=== PATIENT | female | born 1970 | race Caucasian/White ===

== ENCOUNTER 2016-12-15 15:11 | Emergency (ER) | payer OTHER ==
[2016-12-15] MEDS ORDERED: NAPROXEN 250 MG TABLET PO ONE (15:38)
--- NOTE | 2016-12-15 15:43 | Emergency Department Record ---
History of Present Illness - General Chief complaint: Lower Extremity Pain Stated complaint: LEFT LEG PAIN Time Seen by Provider: 12/15/16 15:13 Source: Patient Mode of Arrival: Ambulatory Limitations: No limitations - History of Present Illness Initial comments: 46 yo female presents to ED with a CC of lanterior-lateral left lower leg pain for the past 9 months. Patient reports that her symptoms are intermittent, underwent radiographs which were negative in March of this year. 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 Patient also reports that her symptoms improved when she was off work for 1 week. Patient reports that she fell today which caused her symptoms to worsen. Patient denies fevers, chills, or weakness to the lower extremity on examination. Patient does report that her symptoms are worst following the end of her work day and improved in the morning. MD Complaint: Extremity pain Onset/Timin -: Hour(s) Location: Left, Lower Leg History of Same: Yes Radiation: None Severity scale (1-10): 9 Quality: Burning Consistency: Constant Improves with: Nothing Worsens with: Walking, Weight bearing - Related Data Previous Rx's Medication Instructions Recorded Naproxen [Naprosyn] 500 mg PO Q12H #30 tab. 12/15/16 Allergies Allergy/AdvReac Type Severity Reaction Status Date / Time cefaclor [From Ceclor] Allergy Severe VOMITING Unverified 12/15/16 15:30 cephalexin monohydrate Allergy Severe HIVES Unverified 12/15/16 15:30 [From Keflex] erythromycin base Allergy Severe VOMITING Unverified 12/15/16 15:30 penicillin V Allergy Severe ANAPHYLAXIS Unverified 12/15/16 15:30 tetracycline Allergy Severe VOMITING Unverified 12/15/16 15:30 Travel Screening - Travel/Exposure Within Last 30 Days Have you traveled within the last 30 days?: No - Travel/Exposure Within Last Year Have you traveled outside the [place] in the last year?: No - Additonal Travel Details Have you been exposed to anyone with a communicable illness?: No - Travel Symptoms Symptom Screening: None Review of Systems Constitutional: Denies: Chills, Fever, Malaise, Night sweats Eyes: Denies: Eye discharge, Eye pain ENT: Denies: Congestion, Ear pain, Epistaxis Respiratory: Denies: Cough, Dyspnea Cardiovascular: Denies: Chest pain, Dyspnea on exertion Endocrine: Denies: Fatigue, Heat or cold intolerance Gastrointestinal: Denies: Abdominal pain, Nausea, Vomiting Genitourinary: Denies: Incontinence, Retention Musculoskeletal: Reports: Arthralgia, Myalgia. Denies: Back pain, Gout, Joint swelling Skin: Denies: Bruising, Change in color Neurological: Denies: Abnormal gait, Confusion, Headache, Seizure Psychiatric: Denies: Anxiety Hematological/Lymphatic: Denies: Anemia, Blood Clots Past Medical History - SOCIAL HISTORY Smoking Status: Current every day smoker Alcohol Use: Rare - RESPIRATORY Hx Respiratory Disorders: No - CARDIOVASCULAR Hx Cardio Disorders: Yes Comment:: Heart murmur - NEURO Hx Neuro Disorders: No - GI Hx GI Disorders: No - ENDOCRINE Hx Endocrine Disorders: No Hx Diabetes: No Hx Thyroid Disease: No - MUSCULOSKELETAL Hx Musculoskeletal Disorders: Yes Comment:: Left leg prob since Mar 2016 - PSYCH Hx Psych Problems: No - HEMATOLOGY/ONCOLOGY Hx Hematology/Oncology Disorders: No Family Medical History Any Significant Family History?: Yes Hx Diabetes: Grandparents Hx Heart Disease: Father Hx HTN: Father Physical Exam - General General Appearance: Alert, Oriented x3, Cooperative, No acute distress Limitations: No limitations - Head Head exam: Atraumatic, Normocephalic, Normal inspection Head exam detail: negative: Abrasion, Contusion, Kurtz's sign, General tenderness, Hematoma, Laceration - Eye Eye exam: Normal appearance. negative: Conjunctival injection, Periorbital swelling, Periorbital tenderness, Scleral icterus - ENT Ear exam: negative: Auricular hematoma, Auricular trauma Nasal Exam: negative: Active bleeding, Discharge, Dried blood, Foreign body Mouth exam: negative: Drooling, Laceration, Muffled voice, Tongue elevation - Neck Neck exam: Normal inspection. negative: Meningismus, Tenderness - Respiratory Respiratory exam: Normal lung sounds bilaterally. negative: Rales, Respiratory distress, Rhonchi, Stridor - Cardiovascular Cardiovascular Exam: Regular rate, Normal rhythm, Normal heart sounds - GI/Abdominal GI/Abdominal exam: Soft. negative: Rebound, Rigid, Tenderness - Rectal Rectal exam: Deferred - exam: Deferred - Extremities Extremities exam: Tenderness (TTP along the anterior-lateral aspect of the left lower extremity, no STS noted, strong DPP, and compartments are soft on examination. No edema present. No pain to the calf, posterior leg, or popliteal region. ). negative: Calf tenderness, Pedal edema - Back Back exam: Denies: CVA tenderness (R), CVA tenderness (L) - Neurological Neurological exam: Alert, Normal gait, Oriented X3 - Psychiatric Psychiatric exam: Normal affect, Normal mood - Skin Skin exam: Normal color. negative: Abrasion Type of lesion: negative: abrasion Course Vital Signs 12/15/16 15:15 Temperature 98.5 F Pulse Rate 78 Respiratory 20 Rate Blood Pressure 136/92 Pulse Ox 98 - Reevaluation(s) Reevaluation #1: 12/15/16 16:56 Left Lower Leg: No acute process Patient was updated on her radiology results, appears stable for discharge with continued symptomatic treatment at home for probable overuse injury related to her employment. Will treat with Naprosyn and instructions to reduce her overuse of the extremity. 12/15/16 16:58 Disposition Disposition: Discharge Clinical Impression: Lower extremity pain Qualifiers: Laterality: left Qualified Code(s): M79.605 - Pain in left leg Disposition: Home, Self-Care Condition: (2) Stable Instructions: Leg Pain (ED) Additional Instructions: Return to ED if your symptoms worsen or if you have any concerns. Naprosyn as directed. Follow-up with your family doctor in 3-5 days as directed. Prescriptions: Naproxen [Naprosyn] 500 mg PO Q12H #30 tab.dr Forms: Patient Portal Access Time of Disposition: 17:00 Quality - Quality Measures Quality Measures: N/A - Blood Pressure Screening Does Patient Have Any of the Following: No Blood Pressure Classification: Hypertensive Reading Systolic Measurement: 136 Diastolic Measurement: 92 Screening for High Blood Pressure: < Pre-Hypertensive BP, F/U Documented > [ G8950] Pre-Hypertensive Follow-up Interventions: Referral to alternative/primary care provider.
--- NOTE | 2016-12-17 04:00 | RADIOLOGY REPORT ---
DATE: 12/15/2016. EXAM: LEFT TIBIA/FIBULA, TWO VIEWS. HISTORY: Lateral burning and pain. TECHNIQUE: AP and lateral views of the tibia and fibula were obtained on four images. FINDINGS: The soft tissues are unremarkable. No fracture or malalignment. Tiny enthesophyte at the Achilles calcaneal attachment. Tiny plantar calcaneal enthesophyte also incidentally noted. IMPRESSION: NO ACUTE LEFT TIBIA/FIBULA ABNORMALITY. MILD POSTERIOR AND PLANTAR CALCANEAL ENTHESOPHYTES. JOB NUMBER: [id number] [facility]
== END 2016-12-15 17:09 | disposition home or self-care (01) ==
LOC: ER 15:11
DX: G89.29 Other chronic pain (principal); M79.662 Pain in left lower leg
CPT/HCPCS: 99283

== ENCOUNTER 2017-07-15 07:28 | Day surgery (SDC) | payer OTHER ==
[~2017-07-15 07:28] MED LIST: ACETAMINOPHEN 1,000 MG/100 ML BTL IV ONE; CLINDAMYCIN 600MG/50ML PREMIX 600 MG/50 ML BAG IVPB ONE
[2017-07-15] MEDS ORDERED: PROPOFOL 10 MG/ML VIAL IV ONE (07:29)
[2017-07-15] MEDS ORDERED: LIDOCAINE 2% MDV (20MG/ML) 20ML VIAL IV ONE (07:29)
[2017-07-15] MEDS ORDERED: MIDAZOLAM HCL 2MG/2ML VIAL IV ONE (07:29)
[2017-07-15] MEDS ORDERED: BUPIVACAINE 0.25% W/EPI MPF 30ML VIAL IVP ONE (07:29)
[2017-07-15] MEDS ORDERED: FENTANYL PF 100MCG/2ML VIAL IV ONE (07:29)
--- NOTE | 2017-07-16 13:30 | Operative Note ---
DATE OF SURGERY: 07/15/2017 Surgeon: Ankush Sanders DO PREOPERATIVE DIAGNOSIS: Left breast mass, fibroadenoma. POSTOPERATIVE DIAGNOSIS: Left breast mass, fibroadenoma. OPERATION: Excision of left breast mass. Indication: The patient is a 47-year-old female who had a mass noted which was palpable. This was also seen on imaging. She underwent a stereotactic core biopsy which did reveal findings consistent with fibroadenoma. We did discuss excision versus observation. She desired surgical excision. Risks include but are not limited to bleeding, infection, hematoma formation. She understood this fully. Thereafter, consent was signed and questions answered. PROCEDURE: The patient was taken to the operating room and placed in a supine position. Local and IV sedation was given per the department of anesthesia. The patient's left breast was prepped and draped in the usual fashion. The area around the mass was anesthetized with a total of 8 mL of 0.25% Sensorcaine with epinephrine. A 3 cm curvilinear incision was made along the nipple areolar line. This was carried down to the subcutaneous tissue. A mass was encountered. This was grasped with an Allis and dissected free from surrounding tissue with cautery. This was passed off the field. Hemostasis was noted. The wound was then irrigated, closed with 3-0 Vicryl and 5-0 Monocryl. Dermabond was placed. She was taken to the recovery room in satisfactory condition. Final pathology pending. CC: DEEP Bowman
== END 2017-07-15 09:45 | disposition home or self-care (01) ==
LOC: SUR 07:28
PROVIDERS: ATTEND Surgery
DX: D24.2 Benign neoplasm of left breast (principal)

== ENCOUNTER 2018-06-28 11:23 | Emergency (ER) | payer OTHER ==
--- NOTE | 2018-06-28 11:56 | Emergency Department Record ---
History of Present Illness - General Chief complaint: Lower Extremity Pain Stated complaint: L THIGH PAIN Time Seen by Provider: 06/28/18 11:49 Source: Patient Mode of Arrival: Ambulatory Limitations: No limitations - History of Present Illness Initial comments: The patient is here due to a 10 hour hx of L thigh pain. The pain is an aching sharp pain mainly located over the L lateral thigh. The patient denies any trauma, injury, rash, fever, lower leg pain, numbness, chest pain or SOB. She has no hx of similar issues. MD Complaint: Extremity pain Onset/Timin -: Hour(s) Location: Left, Thigh Severity scale (1-10): 5 Quality: Aching, Sharp - Related Data Previous Rx's Medication Instructions Recorded Naproxen [Naprosyn] 250 mg PO BID #14 tablet 06/28/18 Allergies Allergy/AdvReac Type Severity Reaction Status Date / Time cefaclor [From Ceclor] Allergy Severe VOMITING Verified 06/28/18 11:48 cephalexin monohydrate Allergy Severe HIVES Verified 06/28/18 11:48 [From Keflex] erythromycin base Allergy Severe VOMITING Verified 06/28/18 11:48 penicillin V Allergy Severe ANAPHYLAXIS Verified 06/28/18 11:48 tetracycline Allergy Severe VOMITING Verified 06/28/18 11:48 Travel Screening - Travel/Exposure Within Last 30 Days Have you traveled within the last 30 days?: No - Travel/Exposure Within Last Year Have you traveled outside the [place] in the last year?: No - Additonal Travel Details Have you been exposed to anyone with a communicable illness?: No - Travel Symptoms Symptom Screening: None Review of Systems Constitutional: Denies: Chills, Fever Eyes: Denies: Eye discharge ENT: Denies: Congestion Respiratory: Denies: Cough, Dyspnea Past Medical History - SOCIAL HISTORY Smoking Status: Current every day smoker Alcohol Use: Occasional Drug Use: None - RESPIRATORY Hx Respiratory Disorders: No - CARDIOVASCULAR Hx Cardio Disorders: Yes Hx Palpitations: Yes (occassionally) - NEURO Hx Neuro Disorders: No - GI Hx GI Disorders: No - Hx Genitourinary Disorders: No Comment:: S/P tubal 27 yrs ago - ENDOCRINE Hx Endocrine Disorders: No Hx Diabetes: No Hx Thyroid Disease: No - MUSCULOSKELETAL Hx Musculoskeletal Disorders: Yes Comment:: Left leg/ankle prob since Mar 2016 pinched nerve - PSYCH Hx Psych Problems: No - HEMATOLOGY/ONCOLOGY Hx Hematology/Oncology Disorders: No Family Medical History Any Significant Family History?: Yes Hx Diabetes: Grandparents Hx Heart Disease: Father Hx HTN: Father Physical Exam - General General Appearance: Alert, Oriented x3, Cooperative, No acute distress - Head Head exam: Atraumatic, Normocephalic, Normal inspection - Eye Eye exam: Normal appearance, PERRL, EOMI - ENT Throat exam: Normal inspection. negative: Tonsillar erythema, Tonsillar exudate - Neck Neck exam: Normal inspection, Full ROM. negative: Tenderness - Respiratory Respiratory exam: Normal lung sounds bilaterally. negative: Respiratory distress - Cardiovascular Cardiovascular Exam: Regular rate, Normal rhythm, Normal heart sounds - GI/Abdominal GI/Abdominal exam: Soft, Normal bowel sounds. negative: Tenderness - Extremities Extremities exam: Normal inspection (There is no swelling, erythema, or warmth appreciated.), Full ROM, Tenderness (There is tenderness to palpation over the L lateral thigh.). negative: Calf tenderness, Joint swelling, Pedal edema Image of Full Body: 1 - Area of pain and tenderness. - Back Back exam: Reports: Normal inspection. Denies: Paraspinal tenderness, Vertebral tenderness - Neurological Neurological exam: Alert, Normal gait, Oriented X3. negative: Abnormal gait, Altered, Motor sensory deficit Course Vital Signs 06/28/18 11:40 Temperature 98.2 F Pulse Rate 73 Respiratory 18 Rate Blood Pressure 136/79 Pulse Ox 98 - Reevaluation(s) Reevaluation #1: The patient is doing very well at this time. I did discuss the lab work results and the low but not zero possibility the cause of the pain could be a DVT. Due to that fact I did recommend transfer to another hospital for a doppler test but the patient is refusing. I explained the risks of NOT getting the test are that the patient could have a DVT which could lead to a PE, stroke, disability and even . The patient understands and accepts the risks. She may proceed to another hospital if her symptoms worsen. She also is encouraged to return to the ER for any worsening pain, rash, or fever. 06/28/18 12:39 Medical Decision Making - Lab Data Result diagrams: 06/28/18 12:02 06/28/18 12:02 Disposition Disposition: Discharge Clinical Impression: Acute thigh pain Qualifiers: Laterality: left Qualified Code(s): M79.652 - Pain in left thigh Disposition: Home, Self-Care Condition: (2) Stable Instructions: Leg Pain (ED) Additional Instructions: Please use ice to the L thigh during the day and take the Naprosyn. Please see your family doctor in 2 days for recheck and return to the ER for any worsening symptoms. Prescriptions: Naproxen [Naprosyn] 250 mg PO BID #14 tablet Forms: Patient Portal Access Time of Disposition: 12:45 Quality - Quality Measures Quality Measures: N/A - Blood Pressure Screening View Details: Yes Does Patient Have Any of the Following: No Blood Pressure Classification: Pre-Hypertensive BP Reading Systolic Measurement: 136 Diastolic Measurement: 79 Screening for High Blood Pressure: < Pre-Hypertensive BP, F/U Documented > [ G8950] Pre-Hypertensive Follow-up Interventions: Referral to alternative/primary care provider.
[2018-06-28 12:09] LABS: BASO % 0.4 % (0-6); EOS % 2.8 % (0-6); GRAN % 66.7 % (47-80); HEMATOCRIT 43.6 % (35.0-47.0); HEMOGLOBIN 14.2 gm/dl (11.6-16.0); LYMPH % 24.3 % (16-45); MEAN CELL VOLUME 89.7 fl (81-97); MEAN CORPUSCULAR HEMOGLOBIN 29.2 pg (27-33); MEAN CORPUSCULAR HGB CONC 32.6 g/dl (32-36); MEAN PLATELET VOLUME 11.7 fl (7.4-10.4); MONO % 5.8 % (0-9); PLATELET COUNT 276 K/uL (130-400); RED BLOOD COUNT 4.86 M/uL (3.80-5.40); RED CELL DISTRIBUTION WIDTH 14.4 % (11.5-14.5); WHITE BLOOD COUNT W/O DIFF 9.4 K/uL (4.2-12.2)
[2018-06-28 12:22] LABS: BLOOD UREA NITROGEN 10 mg/dL (6-20); CREATININE 0.9 mg/dL (0.5-0.9); EST GLOMERULAR FILTRATION RATE > 60 mL/min
[2018-06-28 12:23] LABS: TOTAL PROTEIN 6.7 g/dL (6.6-8.7)
[2018-06-28 12:25] LABS: GLUCOSE,RANDOM 116 mg/dL (74-109)
[2018-06-28 12:28] LABS: ALB/GLOB RATIO 1.9 (1.1-1.8); ALBUMIN 4.4 g/dL (4.0-5.0); ALKALINE PHOSPHATASE 77 U/L (35-104); ALT/SGPT 15 U/L (<33); AST/SGOT 17 U/L (10.0-35.0); C-REACTIVE PROTEIN 0.49 mg/dL (<0.5)
== END 2018-06-28 12:50 | disposition home or self-care (01) ==
LOC: ER 11:23
DX: M79.652 Pain in left thigh (principal); F17.210 Nicotine dependence, cigarettes, uncomplicated
CPT/HCPCS: 80053; 85025; 85379; 86140; 99283